=== PATIENT | female | born 1955 ===

== ENCOUNTER → 2019-01-09 14:58 | Outpatient (ROUT) | payer OTHER, SELFPAY ==
[2019-01-09 15:41] LABS: Add Manual Diff / Slide Review NO; Basophils Absolute Auto 0 /uL (0-100); Basophils Percent Auto 0.8 % (0-2); Eosinophils Absolute Auto 100 /uL (0-450); Eosinophils Percent Auto 2.3 % (2-4); Hematocrit 43.9 % (36-46); Hemoglobin 14.2 g/dL (12.0-16.0); Lymphocytes Absolute Auto 1400 /uL (1100-4500); Lymphocytes Percent Auto 33.6 % (25-40); Mean Corpuscular HGB Conc 32.4 % (30-36); Mean Corpuscular Hemoglobin 28.3 PG (26-34); Mean Corpuscular Volume 87.3 fL (80-100); Monocytes Absolute Auto 400 /uL (0-900); Monocytes Percent Auto 8.8 % (3-14); Neutrophils Absolute Auto 2400 /uL (1500-7000); Neutrophils Percent Auto 54.5 % (50-75); Platelet Count 164 X10^3/uL (150-400); Red Blood Cell Count 5.02 X10^6/uL (4.0-5.2); Red Cell Distribution Width 15.3 % (11.6-14.8); White Blood Cell Count 4.3 X10^3/uL (4.5-11.0)
[2019-01-09 15:46] LABS: Alanine Aminotransferase 25 IU/L (9-52); Albumin 4.5 g/dL (3.5-5.0); Albumin Globulin Ratio 1.7 (1.0-2.8); Alkaline Phosphatase 68 U/L (38-126); Aspartate Aminotransferase 22 IU/L (14-36); BUN Creatinine Ratio 34.3 (6-22); Bilirubin Total 0.6 mg/dL (0.2-1.3); Blood Urea Nitrogen 24 mg/dL (7-17); Calcium 9.7 mg/dL (8.4-10.2); Carbon Dioxide 27 mmol/L (22-32); Chloride 104 mmol/L (98-107); Estimated Glomerular Filt Rate > 60.0 mL/min (>60); Globulin 2.6 g/dL (1.7-4.1); Glucose 124 mg/dL (80-110); HEMOLYSIS < 15 (0-50); Potassium 4.9 mmol/L (3.4-5.1); Sodium 140 mmol/L (137-145); Total Protein 7.1 g/dL (6.3-8.2)
[2019-01-09 15:52] LABS: High Sensitivity CRP - Cardiac 0.7 mg/L (1.0-3.0)
[2019-01-11 19:47] LABS: Homocysteine 13.3 umol/L (< 10.4)
[2019-01-14 21:40] LABS: Apolipoprotein B 96 mg/dL (49-103); Cholesterol, Total 212 mg/dL (<200); HDL Cholesterol 62 mg/dL (>50); Lipoprotein (a) <10 nmol/L (<75); Non- HDL Cholesterol 150 (<130); Triglycerides 55 mg/dL (<150)
== END ==
PROVIDERS: Visit Provider Registered Nurse
DX: E78.5 Hyperlipidemia, unspecified (principal); E72.11 Homocystinuria; R68.89 Other general symptoms and signs
CPT/HCPCS: 36415; 80053; 83090; 83695; 85025; 86140